=== PATIENT | female | born 1955 | race Caucasian/White ===

== ENCOUNTER 2017-05-22 21:27 | Emergency (ER) | payer OTHER ==
[2017-05-22 22:28] LABS: #Eosinphils 0.3 thou/uL (0.0-0.7); #Lymphocytes 3.9 thou/uL (1.20-3.40); #Neutrophils 6.8 thou/uL (1.40-6.50); %Basophils 0.1 % (0.0-1.0); %Eosinophils 2.7 % (0.0-10.0); %Lymphocytes 32.3 % (21.0-51.0); %Monocytes 8.3 % (0.0-10.0); %Neutrophils 56.6 % (42.0-75.0); Hemoglobin 11.6 g/dL (12.0-16.0); Mean Corpuscular HGB CONC 34.2 g/dL (32.0-36.0); Mean Corpuscular Hemoglobin 31.9 pg (27.0-31.0); Mean Corpuscular Volume 93.2 fl (81.0-99.0); Mean Platelet Volume 6.9 fL (7.4-10.4); Platelet Count 349 thou/uL (130-400); RBC Distribution Width 11.8 % (11.5-14.5); Red Blood Cell (RBC) Count 3.63 mill/uL (4.20-5.40)
[2017-05-22 22:50] LABS: ALT (SGPT) 13 U/L (8-55); AST (SGOT) 17 U/L (5-34); Alkaline Phosphatase 123 U/L (40-150); Anion Gap 11 mmol/L (10-20); BUN (Urea Nitrogen) 21 mg/dL (9.8-20.1); Bilirubin, Total 0.4 mg/dL (0.2-1.2); Calc. Creatinine Clearance 0 mL/min (70-130); Calcium 8.9 mg/dL (7.8-10.44); Carbon Dioxide 25 mmol/L (22-29); Chloride 105 mmol/L (98-107); Estimated GFR-MDRD 42; Globulin 2.3 g/dL (2.4-3.5); Glucose 104 mg/dL (70-105); Potassium 3.2 mmol/L (3.5-5.1); Protein, Total 6.3 g/dL (6.0-8.3); Sodium 138 mmol/L (136-145)
--- NOTE | 2017-05-22 23:58 | RAD ---
THREE VIEWS OF THE RIGHT FOOT: Indication: History of right foot infection following surgery. Comparison: 12-02-12 FINDINGS: Since the comparison examination there has been an interval bunionectomy and rotational osteotomy of the great toe metatarsal. There is also arthrodesis of the great toe medial cuneiform articulation. T here is a screws fixating the base of the great toe metatarsal with a metal cuneiform. There are also changes of prior external fixator placement involving the second metatarsal shaft. There is also ost eotomy change involving the second metatarsal head and neck region. There is post-surgical change res ection arthroplasty of the second digit PIP joint. No acute fracture is evident. Lisfranc alignment i s preserved. 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 There is soft tissue swelling of the forefoot. IMPRESSION: 1. Soft tissue swelling of the right foot. 2. Extensive post-operative changes of the right foot. 3. No definite destructive osteolysis to suggest presence of osteomyelitis. POS: [facility]
[2017-05-23] MEDS ORDERED: Clindamycin/D5W 600 mg/50 ml Premix Bag ONE (00:33)
[2017-05-23] MEDS ORDERED: Morphine 4 MG/ML VIAL ONE (02:17)
--- NOTE | 2017-05-23 08:41 | CT ---
PRELIMINARY REPORT/[facility]/EMERGENTY AFTER-HOURS PROCEDURE EXAM: CT Right Lower Extremity With Intravenous Contrast EXAM DATE/TIME: Exam ordered 05/23/2017 1:33 AM CLINICAL HISTORY: 61 years old, female; Pain; Ankle and foot; Right; Prior surgery; Surgery date: <1 month; Patient HX: 61 yo f presents to ed C/O r foot pain. Pt states she had surgery on r foot on 04/22/[address] Arias . States that a couple days ago she started having pain to r foot, worse today. Also reports swelling t o r foot that started last night. Pt states she has also had fever, temp 100. Reports nausea. Denies vomiting or diarrhea. 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 TECHNIQUE: Axial computed tomography images of the right lower extremity with intravenous contrast. Coronal and sagittal reformatted images were created and reviewed. CONTRAST: 60 mL of ISOVUE 370 administered intravenously. COMPARISON: No relevant prior studies available. FINDINGS: Bones/joints: Patient is post bunionectomy at the first metatarsal head with surgical pinning of the second metatarsal head, base of the first metatarsal and cuneiform bones. No acute fracture. No dislo cation. Soft tissues: There is marked soft tissue swelling adjacent to the RIGHT first metatarsal head with c ortical rarefaction which may represent postsurgical change versus acute osteomyelitis. IMPRESSION: 1. RIGHT foot postsurgical changes as above. 2. There is marked soft tissue swelling adjacent to the RIGHT first metatarsal head with cortical rar efaction which may represent postsurgical change versus acute osteomyelitis. MRI foot without and wit h contrast or nuclear medicine bone scan may be helpful for further evaluation. Followup or further e valuation for this finding at local [facility] radiologist's discretion. Thank you for allowing us to participate in the care of your patient. Dictated and Authenticated by: Phoenix Burton MD 05/23/2017 2:39 AM Central Time ([place] & [place]) FINAL REPORT CT RIGHT FOOT WITH CONTRAST: Date: 05/23/17 HISTORY: Pain. Recent surgery. FINDINGS/IMPRESSION: The findings and impression are concordant with the preliminary report. The focal area of rarefaction of the great toe metatarsal head is most likely postsurgical in nature. Recommend correlating with p ousmane's intraoperative and recent postoperative radiographs.
[2017-05-23] MEDS ORDERED: ISOVUE-370 76%-LOCM 1 ML ONE (09:25)
== END 2017-05-23 05:34 | disposition home or self-care (01) ==
LOC: ERS 21:27
DX: G89.18 Other acute postprocedural pain (principal); L03.115 Cellulitis of right lower limb; F32.9 Major depressive disorder, single episode, unspecified; F17.210 Nicotine dependence, cigarettes, uncomplicated; Z79.899 Other long term (current) drug therapy
CPT/HCPCS: 36415; 80053; 83605; 85025; 87040; 96365; 96367; 96375; 99406; J2270; J3370; J3490

== ENCOUNTER 2017-09-29 22:05 | Emergency (ER) | payer OTHER ==
[2017-09-29] MEDS ORDERED: HYDROcodone/Acetaminophen 10/325 mg Tablet ONE (22:28)
--- NOTE | 2017-09-29 22:48 | RAD ---
FOUR VIEWS LEFT KNEE: 09/29/17 INDICATION: Left knee injury. COMPARISON: None. FINDINGS: No acute fracture or subluxation is evident. There is moderate osteoarthrosis of the left knee. No de finite intracapsular distention is evident. IMPRESSION: No acute osseous abnormality. Moderate osteoarthrosis of the left knee. POS: [facility]
== END 2017-09-29 23:24 | disposition home or self-care (01) ==
LOC: ERS 22:05
DX: S83.92XA Sprain of unspecified site of left knee, initial encounter (principal); E03.9 Hypothyroidism, unspecified; M06.9 Rheumatoid arthritis, unspecified; F41.9 Anxiety disorder, unspecified; F32.9 Major depressive disorder, single episode, unspecified; F90.9 Attention-deficit hyperactivity disorder, unspecified type; Z79.899 Other long term (current) drug therapy; Z71.6 Tobacco abuse counseling; X50.1XXA Overexertion from prolonged static or awkward postures, initial encounter
CPT/HCPCS: 99406

== ENCOUNTER 2019-02-25 19:32 | Emergency (ER) | payer OTHER ==
[2019-02-25 20:34] LABS: #Basophils 0.1 thou/uL (0.0-0.2); #Eosinphils 0.1 thou/uL (0.0-0.7); #Lymphocytes 3.5 thou/uL (1.20-3.40); #Monocytes 0.9 thou/uL (0.11-0.59); #Neutrophils 6.3 thou/uL (1.40-6.50); %Basophils 0.6 % (0.0-1.0); %Eosinophils 1.4 % (0.0-10.0); %Lymphocytes 32.1 % (21.0-51.0); %Monocytes 8.2 % (0.0-10.0); %Neutrophils 57.7 % (42.0-75.0); Hemoglobin 13.6 g/dL (12.0-16.0); Mean Corpuscular HGB CONC 32.8 g/dL (32.0-36.0); Mean Corpuscular Hemoglobin 30.9 pg (27.0-31.0); Mean Corpuscular Volume 94.2 fL (78.0-98.0); Mean Platelet Volume 7.7 fL (7.4-10.4); Platelet Count 382 thou/uL (130-400); RBC Distribution Width 11.9 % (11.5-14.5); Red Blood Cell (RBC) Count 4.41 mill/uL (4.20-5.40)
[2019-02-25 20:55] LABS: ALT (SGPT) 12 U/L (8-55); AST (SGOT) 17 U/L (5-34); Albumin 4.1 g/dL (3.4-4.8); Alkaline Phosphatase 140 U/L (40-110); Anion Gap 15 mmol/L (10-20); BUN (Urea Nitrogen) 15 mg/dL (9.8-20.1); Bilirubin, Total 0.3 mg/dL (0.2-1.2); Calc. Creatinine Clearance 0 mL/min (70-130); Calcium 9.2 mg/dL (7.8-10.44); Carbon Dioxide 26 mmol/L (23-31); Chloride 102 mmol/L (98-107); Estimated GFR-MDRD 46; Globulin 2.7 g/dL (2.4-3.5); Glucose 102 mg/dL (80-115); Potassium 4.6 mmol/L (3.5-5.1); Protein, Total 6.8 g/dL (6.0-8.3); Sodium 138 mmol/L (136-145)
--- NOTE | 2019-02-25 21:02 | RAD ---
RIGHT FOOT 3 VIEWS: Date: 02/25/2019 HISTORY: Surgery 01/08/19. Postop complication. COMPARISON: 05/22/17 foot examination, which is the only exam available for comparison. FINDINGS: A plate and screws extend over the first metatarsophalangeal joint. Also, screw placement at the base of the metatarsals and pin placement through the second toe and second metatarsal. There is chronic- appearing fracture of the base of the proximal phalanx of the second toe. Calcaneal spur is noted. I do not see any definite evidence for osteomyelitis. IMPRESSION: Postoperative changes of the foot. No definite acute process. POS: [facility]
[2019-02-25] MEDS ORDERED: Morphine 4 MG/ML VIAL ONE (22:37)
[2019-02-25] MEDS ORDERED: Ketorolac Tromethamine 30 MG/ML VIAL ONE (22:37)
[2019-02-25] MEDS ORDERED: Bacitracin 1 PK ONE (22:44)
== END 2019-02-25 23:10 | disposition home or self-care (01) ==
LOC: ERS 19:32
DX: T84.629A Infection and inflammatory reaction due to internal fixation device of unspecified bone of leg, initial encounter (principal); F32.9 Major depressive disorder, single episode, unspecified; F41.9 Anxiety disorder, unspecified; F90.9 Attention-deficit hyperactivity disorder, unspecified type; F17.210 Nicotine dependence, cigarettes, uncomplicated; E03.9 Hypothyroidism, unspecified; Z79.899 Other long term (current) drug therapy
CPT/HCPCS: 36415; 80053; 85025; 85652; 86140; 96372; J1885; J2270

== ENCOUNTER 2019-05-09 15:28 | Emergency (ER) | payer BC, OTHER | END 2019-05-09 17:15 | disposition home or self-care (01) | LOC: ERS 15:28 | DX: L03.114 Cellulitis of left upper limb (principal); E03.9 Hypothyroidism, unspecified; M06.9 Rheumatoid arthritis, unspecified; F41.9 Anxiety disorder, unspecified; M19.90 Unspecified osteoarthritis, unspecified site; F90.9 Attention-deficit hyperactivity disorder, unspecified type; Z87.891 Personal history of nicotine dependence; Z71.6 Tobacco abuse counseling | CPT/HCPCS: 99406 ==

== ENCOUNTER 2021-10-23 09:42 | Outpatient (CLI) | payer OTHER, MEDICAID | END 2021-10-23 09:43 | disposition home or self-care (01) | LOC: BICMAMMO 09:42 | PROVIDERS: ATTEND Family Medicine | DX: N64.89 Other specified disorders of breast (principal) | CPT/HCPCS: 76642; 77065; G0279 ==

== ENCOUNTER 2023-03-15 14:03 | Outpatient (CLI) | payer OTHER, MEDICAID | END 2023-03-15 14:04 | disposition home or self-care (01) | LOC: BICMAMMO 14:03 | PROVIDERS: ATTEND Family Medicine | DX: Z12.31 Encounter for screening mammogram for malignant neoplasm of breast (principal); Z12.2 Encounter for screening for malignant neoplasm of respiratory organs; R91.8 Other nonspecific abnormal finding of lung field; J18.1 Lobar pneumonia, unspecified organism; Z87.891 Personal history of nicotine dependence | CPT/HCPCS: 71271; 77063; 77067 ==

== ENCOUNTER 2024-11-06 21:28 | Emergency (ER) | payer OTHER, MEDICAID | END 2024-11-06 21:43 | LOC: ERS 21:28 | DX: Z53.21 Procedure and treatment not carried out due to patient leaving prior to being seen by health care provider (principal) ==

== ENCOUNTER 2024-12-26 15:16 | Inpatient (IN) | payer OTHER, MEDICAID ==
[2024-12-26] MEDS ORDERED: Ketorolac Tromethamine 30 MG (1 mL) VIAL ONE (16:52)
[2024-12-26 17:02] LABS: #Basophils 0.03 10x3/uL (0.0-0.2); #Eosinophils 0.55 10x3/uL (0.0-0.7); #Monocytes 1.14 10x3/uL (0.11-0.59); #Neutrophils 7.45 10x3/uL (1.40-6.50); %Basophils 0.3 % (0.0-1.0); %Eosinophils 4.6 % (0.0-10.0); %Lymphocytes 22.3 % (21.0-51.0); %Monocytes 9.6 % (0.0-10.0); %Neutrophils 62.8 % (42.0-75.0); Hematocrit 31.3 % (36.0-47.0); Hemoglobin 9.9 g/dL (12.0-16.0); Mean Corpuscular Hemoglobin 30.5 pg (27.0-31.0); Mean Corpuscular Volume 96.3 fL (78.0-98.0); Platelet Count 332 10x3/uL (130-400); Red Blood Cell (RBC) Count 3.25 mill/uL (4.20-5.40); White Blood Cell (WBC) Count 11.86 10x3/uL (4.8-10.8)
[2024-12-26 17:29] LABS: Anion Gap 16 mmol/L (10-20); BUN (Urea Nitrogen) 33 mg/dL (9.8-20.1); Calc. Creatinine Clearance 0 mL/min (70-130); Carbon Dioxide 22 mmol/L (23-31); Chloride 104 mmol/L (98-107); Potassium 4.5 mmol/L (3.5-5.1); Sodium 137 mmol/L (136-145)
[2024-12-26 17:30] LABS: ALT (SGPT) 9 U/L (Less than 34); AST (SGOT) 34 U/L (11-34); Albumin 3.5 g/dL (3.1-4.5); Alkaline Phosphatase 110 U/L (40-110); Bilirubin, Total 0.6 mg/dL (0.3-1.2); Calcium 8.8 mg/dL (7.8-10.44); Globulin 3.0 g/dL (2.4-3.5); Glucose 75 mg/dL (80-115); Magnesium 1.8 mg/dL (1.6-2.6)
[2024-12-26] MEDS ORDERED: Dexamethasone 10 MG/ML VIAL ONE (17:51)
[2024-12-26] MEDS ORDERED: Magnesium 2 GM/50 ML BAG (IN WATER) ONE (17:51)
[2024-12-26] MEDS ORDERED: Albuterol 2.5 MG (3 mL) NEB ONE (17:51)
[2024-12-26] MEDS ORDERED: Dextrose 50% Abboject 50 ML SYRINGE ONE ×2 (18:05→21:18)
[2024-12-26 18:06] LABS: Actual Bicarbonate (HCO3a) 20.8 mEq/L (22-28); Analyzer IN Cardio ER; Base Excess (BEa) -4.9 mEq/L (-2.0 to +3.0); CO2 Tension 41.2 mmHg (35.0-45.0); Calcium, Ionized (arterial) 1.12 mmol/L (1.12-1.30); Hematocrit-ABG 31 % (36.0-47.0); Hemoglobin (Hb) 10.5 g/dL (12.0-16.0); O2 Tension (PaO2), arterial 150.4 mmHg (> 80.0); Potassium - ABG Lab 4.50 mmol/L (3.70-5.30); pH, Arterial 7.321 (7.35-7.45)
[2024-12-26 19:11] LABS: Acetaminophen Less than 10 mcg/mL (Less than 10); Salicylate Less than 8.0 mg/dL (Less than 8.0)
[2024-12-26 22:21] LABS: CAUTI Indications for Culture Dysuria,urgency,freq; Glucose, Urine (Dipstick) Normal (Negative); Leukocyte Negative Leu/uL (Negative); Protein, Urine (Dipstick) Negative (Neg-Trace); RBC/HPF None Seen HPF (0-3); Specific Gravity, Urine 1.018 (1.002-1.036); WBC/HPF 0-3 HPF (0-3)
[2024-12-26 22:22] LABS: Bacteria/HPF 1+ HPF (None Seen)
[2024-12-26 22:24] LABS: Urine Culture Reflex No No
[2024-12-26 22:25] LABS: Cocaine Metabolite Screen Negative (Negative); THC/Cannabinoid Screen Negative (Negative); Tricyclic Screen Negative (Negative)
[2024-12-27] MEDS ORDERED: Calcium Carbonate 500 MG ChewTAB PO PRN (00:35)
[2024-12-27] MEDS ORDERED: Senokot S 8.6-50 MG TAB PO PRN (00:35)
[2024-12-27] MEDS ORDERED: Ondansetron PF 4 MG/2 ML Vial IVP PRN (00:35)
[2024-12-27 00:50] LABS: Hematocrit 30.5 % (36.0-47.0); Hemoglobin 9.3 g/dL (12.0-16.0)
[2024-12-27] MEDS: Albumin 25% 25 GM (100 mL) BOT IVPB SCH ×2 (02:39→05:27)
[2024-12-27] MEDS: cefTRIAXone\\ROCEPHIN 1 GM in Sodium Chloride 0.9% 100 ML IVPB SCH ×2 (02:59→22:17)
[2024-12-27] MEDS: Azithromycin 500 MG in Sodium Chloride 0.9% 250 ML 250 ML IVPB SCH ×2 (03:41→22:16)
[2024-12-27] MEDS: cefTRIAXone (ROCEPHIN) 1 GM VIAL ONE ×2 (03:42→22:17)
[2024-12-27 05:18] LABS: Actual Bicarbonate (HCO3v) 17.2 mEq/L (22-28); Base Excess -8.0 mEq/L (-2.0 to +3.0); Calcium, Ionized (venous) 1.06 mmol/L (1.16-1.32); Chloride (VBG) 107 mmol/L (98-106); Hematocrit-VBG 29 % (36.0-47.0); Hemoglobin (Hb) 9.8 g/dL (11.7-16.1); Potassium (VBG) 4.88 mmol/L (3.70-5.30); Sodium 136 mmol/L (133-146)
[2024-12-27 05:27] LABS: #Basophils Less than 0.03 10x3/uL (0.0-0.2); #Eosinophils Less than 0.03 10x3/uL (0.0-0.7); #Monocytes 0.08 10x3/uL (0.11-0.59); #Neutrophils 6.62 10x3/uL (1.40-6.50); %Basophils 0.1 % (0.0-1.0); %Eosinophils 0.0 % (0.0-10.0); %Lymphocytes 8.1 % (21.0-51.0); %Monocytes 1.1 % (0.0-10.0); %Neutrophils 89.6 % (42.0-75.0); Hematocrit 27.2 % (36.0-47.0); Hemoglobin 8.3 g/dL (12.0-16.0); Mean Corpuscular Hemoglobin 30.5 pg (27.0-31.0); Mean Corpuscular Volume 100.0 fL (78.0-98.0); Platelet Count 269 10x3/uL (130-400); Red Blood Cell (RBC) Count 2.72 mill/uL (4.20-5.40); White Blood Cell (WBC) Count 7.39 10x3/uL (4.8-10.8)
[2024-12-27 05:46] LABS: Iron 54 ug/dL (50-170); Iron Binding Capacity, Total 199 mcg/dL (265-497)
[2024-12-27 05:51] LABS: ALT (SGPT) 7 U/L (Less than 34); AST (SGOT) 26 U/L (11-34); Albumin 3.4 g/dL (3.1-4.5); Alkaline Phosphatase 88 U/L (40-110); Anion Gap 14 mmol/L (10-20); BUN (Urea Nitrogen) 33 mg/dL (9.8-20.1); Bilirubin, Total 0.4 mg/dL (0.3-1.2); Calc. Creatinine Clearance 27 mL/min (70-130); Calcium 8.1 mg/dL (7.8-10.44); Carbon Dioxide 18 mmol/L (23-31); Chloride 109 mmol/L (98-107); Globulin 2.4 g/dL (2.4-3.5); Glucose 192 mg/dL (80-115); Iron 56 ug/dL (50-170); Iron Binding Capacity, Total 199 mcg/dL (265-497); Magnesium 2.3 mg/dL (1.6-2.6); Potassium 5.0 mmol/L (3.5-5.1); Sodium 136 mmol/L (136-145)
[2024-12-27 08:20] LABS: Influenza A by NAA Not Detected (NotDetected); Influenza B by NAA Not Detected (NotDetected); RSV by NAA Not Detected (NotDetected); SARS-CoV-2 NAA Rapid Test Not Detected (NotDetected)
[2024-12-27] MEDS: Citalopram 20 MG TAB PO SCH (08:21)
[2024-12-27] MEDS: Gabapentin 300 MG CAP PO SCH (08:25)
[2024-12-27] MEDS: Acetaminophen 325 MG TAB PO PRN (10:56)
[2024-12-28 04:18] LABS: #Basophils Less than 0.03 10x3/uL (0.0-0.2); #Eosinophils Less than 0.03 10x3/uL (0.0-0.7); #Monocytes 0.67 10x3/uL (0.11-0.59); #Neutrophils 17.88 10x3/uL (1.40-6.50); %Basophils 0.1 % (0.0-1.0); %Eosinophils 0.0 % (0.0-10.0); %Lymphocytes 3.7 % (21.0-51.0); %Monocytes 3.4 % (0.0-10.0); %Neutrophils 91.4 % (42.0-75.0); Hematocrit 27.9 % (36.0-47.0); Hemoglobin 8.3 g/dL (12.0-16.0); Mean Corpuscular Hemoglobin 30.1 pg (27.0-31.0); Mean Corpuscular Volume 101.1 fL (78.0-98.0); Platelet Count 317 10x3/uL (130-400); Red Blood Cell (RBC) Count 2.76 mill/uL (4.20-5.40); White Blood Cell (WBC) Count 19.56 10x3/uL (4.8-10.8)
[2024-12-28 04:29] LABS: Anion Gap 17 mmol/L (10-20); BUN (Urea Nitrogen) 34 mg/dL (9.8-20.1); Calc. Creatinine Clearance 34 mL/min (70-130); Calcium 8.2 mg/dL (7.8-10.44); Carbon Dioxide 14 mmol/L (23-31); Chloride 113 mmol/L (98-107); Glucose 123 mg/dL (80-115); Potassium 4.7 mmol/L (3.5-5.1); Sodium 139 mmol/L (136-145)
[2024-12-28 12:29] LABS: Actual Bicarbonate (HCO3v) 19.7 mEq/L (22-28); Base Excess -6.5 mEq/L (-2.0 to +3.0); Calcium, Ionized (venous) 1.13 mmol/L (1.16-1.32); Chloride (VBG) 113 mmol/L (98-106); Hematocrit-VBG 29 % (36.0-47.0); Hemoglobin (Hb) 9.9 g/dL (11.7-16.1); Potassium (VBG) 4.89 mmol/L (3.70-5.30); Sodium 141 mmol/L (133-146)
[2024-12-28] MEDS: Furosemide 40 MG (4 mL) VIAL SLOW IVP SCH (12:29)
[2024-12-28 13:57] LABS: Actual Bicarbonate (HCO3a) 19.4 mEq/L (22-28); Base Excess (BEa) -5.3 mEq/L (-2.0 to +3.0); CO2 Tension 34.6 mmHg (35.0-45.0); Calcium, Ionized (arterial) 1.16 mmol/L (1.12-1.30); Hematocrit-ABG 29 % (36.0-47.0); Hemoglobin (Hb) 10.0 g/dL (12.0-16.0); O2 Tension (PaO2), arterial 61.1 mmHg (> 80.0); Potassium - ABG Lab 4.89 mmol/L (3.70-5.30); pH, Arterial 7.367 (7.35-7.45)
[2024-12-28 14:01] LABS: Puncture Site Left Brachial artery
[2024-12-28] MEDS: Azithromycin 500 MG VIAL ONE (20:49)
[2024-12-28] MEDS: Sodium Bicarbonate Tab 325 MG TAB PO SCH (21:09)
[2024-12-29 04:27] LABS: #Basophils Less than 0.03 10x3/uL (0.0-0.2); #Eosinophils Less than 0.03 10x3/uL (0.0-0.7); #Monocytes 0.62 10x3/uL (0.11-0.59); #Neutrophils 14.70 10x3/uL (1.40-6.50); %Basophils 0.1 % (0.0-1.0); %Eosinophils 0.0 % (0.0-10.0); %Lymphocytes 4.3 % (21.0-51.0); %Monocytes 3.8 % (0.0-10.0); %Neutrophils 90.6 % (42.0-75.0); Hematocrit 29.4 % (36.0-47.0); Hemoglobin 9.2 g/dL (12.0-16.0); Mean Corpuscular Hemoglobin 30.6 pg (27.0-31.0); Mean Corpuscular Volume 97.7 fL (78.0-98.0); Platelet Count 298 10x3/uL (130-400); Red Blood Cell (RBC) Count 3.01 mill/uL (4.20-5.40); White Blood Cell (WBC) Count 16.22 10x3/uL (4.8-10.8)
[2024-12-29 04:39] LABS: Anion Gap 13 mmol/L (10-20); BUN (Urea Nitrogen) 34 mg/dL (9.8-20.1); Calc. Creatinine Clearance 42 mL/min (70-130); Calcium 8.9 mg/dL (7.8-10.44); Carbon Dioxide 24 mmol/L (23-31); Chloride 110 mmol/L (98-107); Glucose 137 mg/dL (80-115); Potassium 4.9 mmol/L (3.5-5.1); Sodium 142 mmol/L (136-145)
[2024-12-29] MEDS ORDERED: QUEtiapine 25 MG TAB PO SCH (21:00)
[2024-12-29] MEDS: Sodium Bicarbonate Tab 325 MG TAB PO SCH (21:23)
[2024-12-29] MEDS: diphenhydrAMINE 50 MG/ML VIAL IVP SCH (23:47)
[2024-12-30] MEDS ORDERED: QUEtiapine 25 MG TAB PO SCH (02:15)
[2024-12-30 03:27] LABS: Actual Bicarbonate (HCO3v) 23.0 mEq/L (22-28); Base Excess -0.6 mEq/L (-2.0 to +3.0); Calcium, Ionized (venous) 1.09 mmol/L (1.16-1.32); Chloride (VBG) 107 mmol/L (98-106); Hematocrit-VBG 31 % (36.0-47.0); Hemoglobin (Hb) 10.5 g/dL (11.7-16.1); Potassium (VBG) 4.28 mmol/L (3.70-5.30); Sodium 141 mmol/L (133-146)
[2024-12-30 03:31] LABS: #Basophils Less than 0.03 10x3/uL (0.0-0.2); #Eosinophils Less than 0.03 10x3/uL (0.0-0.7); #Monocytes 1.48 10x3/uL (0.11-0.59); #Neutrophils 15.77 10x3/uL (1.40-6.50); %Basophils 0.1 % (0.0-1.0); %Eosinophils 0.0 % (0.0-10.0); %Lymphocytes 10.6 % (21.0-51.0); %Monocytes 7.6 % (0.0-10.0); %Neutrophils 80.9 % (42.0-75.0); Hematocrit 29.1 % (36.0-47.0); Hemoglobin 9.1 g/dL (12.0-16.0); Mean Corpuscular Hemoglobin 30.3 pg (27.0-31.0); Mean Corpuscular Volume 97.0 fL (78.0-98.0); Platelet Count 276 10x3/uL (130-400); Red Blood Cell (RBC) Count 3.00 mill/uL (4.20-5.40); White Blood Cell (WBC) Count 19.49 10x3/uL (4.8-10.8)
[2024-12-30 03:44] LABS: Anion Gap 16 mmol/L (10-20); BUN (Urea Nitrogen) 34 mg/dL (9.8-20.1); Calc. Creatinine Clearance 47 mL/min (70-130); Calcium 9.2 mg/dL (7.8-10.44); Carbon Dioxide 22 mmol/L (23-31); Chloride 110 mmol/L (98-107); Glucose 82 mg/dL (80-115); Potassium 4.4 mmol/L (3.5-5.1); Sodium 144 mmol/L (136-145)
[2024-12-30] MEDS: FLU (Fluad Triv) 25-26 (65UP)PF 45 MCG/0.5 ML Syringe IM ONE (09:25)
[2024-12-30] MEDS ORDERED: DISCONTINUE PREVIOUS NARCOTIC PAIN MEDICATIONS AND BENZODIAZEPINES FS SCH (11:30)
[2024-12-30] MEDS ORDERED: Fentanyl BOLUS 100 ML IVPB PRN (11:30)
[2024-12-30] MEDS ORDERED: Propofol BOLUS 1,000 MG/100 ML VIAL IV PRN (11:30)
[2024-12-30] MEDS: Furosemide 40 MG (4 mL) VIAL ONE (11:37)
[2024-12-30] MEDS: Furosemide 40 MG (4 mL) VIAL SLOW IVP SCH (11:37)
[2024-12-30] MEDS ORDERED: Etomidate 40 MG (20 mL) VIAL ONE (11:50)
[2024-12-30] MEDS ORDERED: Rocuronium Bromide 10 MG/ML (10ML VIAL) ONE (11:50)
[2024-12-30] MEDS ORDERED: Ventilator Sedation Protocol 1 EACH FS SCH (12:30)
[2024-12-30 13:17] LABS: Actual Bicarbonate (HCO3a) 20.5 mEq/L (22-28); Base Excess (BEa) -4.7 mEq/L (-2.0 to +3.0); CO2 Tension 38.4 mmHg (35.0-45.0); Calcium, Ionized (arterial) 1.16 mmol/L (1.12-1.30); Hematocrit-ABG 30 % (36.0-47.0); Hemoglobin (Hb) 10.3 g/dL (12.0-16.0); O2 Tension (PaO2), arterial 155.9 mmHg (> 80.0); Potassium - ABG Lab 4.08 mmol/L (3.70-5.30); pH, Arterial 7.346 (7.35-7.45)
[2024-12-30 13:18] LABS: Puncture Site Right Brachial art
[2024-12-30] MEDS: VANCOMYCIN 2 GRAM/400 ML BAG 2 GM in Premix 1 BAG IVPB SCH (13:44)
[2024-12-30 15:06] LABS: ALT (SGPT) 16 U/L (Less than 34); AST (SGOT) 41 U/L (11-34); Albumin 3.4 g/dL (3.1-4.5); Alkaline Phosphatase 65 U/L (40-110); Anion Gap 14 mmol/L (10-20); BUN (Urea Nitrogen) 31 mg/dL (9.8-20.1); Bilirubin, Total 1.2 mg/dL (0.3-1.2); Calc. Creatinine Clearance 42 mL/min (70-130); Calcium 8.5 mg/dL (7.8-10.44); Carbon Dioxide 23 mmol/L (23-31); Chloride 110 mmol/L (98-107); Globulin 2.5 g/dL (2.4-3.5); Glucose 106 mg/dL (80-115); Potassium 4.2 mmol/L (3.5-5.1); Sodium 143 mmol/L (136-145)
[2024-12-30] MEDS: Norepinephrine 8 MG/0.9% NS 250 ML IVPB SCH (16:20)
[2024-12-30] MEDS: Norepinephrine 8 MG/0.9% NS 250 ML ONE (16:37)
[2024-12-30 20:22] LABS: Actual Bicarbonate (HCO3a) 20.4 mEq/L (22-28); Base Excess (BEa) -4.7 mEq/L (-2.0 to +3.0); CO2 Tension 37.5 mmHg (35.0-45.0); Calcium, Ionized (arterial) 1.12 mmol/L (1.12-1.30); Hematocrit-ABG 31 % (36.0-47.0); Hemoglobin (Hb) 10.7 g/dL (12.0-16.0); O2 Tension (PaO2), arterial 62.8 mmHg (> 80.0); Potassium - ABG Lab 4.05 mmol/L (3.70-5.30); pH, Arterial 7.353 (7.35-7.45)
[2024-12-30 20:23] LABS: ALV-art Gradient 389.425 mmHg (0-20); Puncture Site Right Radial artery
[2024-12-31 04:03] LABS: Hematocrit 31.8 % (36.0-47.0); Hemoglobin 9.6 g/dL (12.0-16.0); Mean Corpuscular Hemoglobin 30.4 pg (27.0-31.0); Mean Corpuscular Volume 100.6 fL (78.0-98.0); Platelet Count 314 10x3/uL (130-400); Red Blood Cell (RBC) Count 3.16 mill/uL (4.20-5.40); White Blood Cell (WBC) Count 29.58 10x3/uL (4.8-10.8)
[2024-12-31 04:18] LABS: Vancomycin, Random 24.6 ug/mL (See Comment)
[2024-12-31 04:21] LABS: ALT (SGPT) 11 U/L (Less than 34); AST (SGOT) 21 U/L (11-34); Albumin 3.5 g/dL (3.1-4.5); Alkaline Phosphatase 67 U/L (40-110); Anion Gap 18 mmol/L (10-20); BUN (Urea Nitrogen) 44 mg/dL (9.8-20.1); Bilirubin, Total 0.9 mg/dL (0.3-1.2); Calc. Creatinine Clearance 37 mL/min (70-130); Calcium 8.6 mg/dL (7.8-10.44); Carbon Dioxide 21 mmol/L (23-31); Chloride 108 mmol/L (98-107); Globulin 2.9 g/dL (2.4-3.5); Glucose 130 mg/dL (80-115); Potassium 4.1 mmol/L (3.5-5.1); Sodium 143 mmol/L (136-145)
[2024-12-31 04:43] LABS: Anisocytosis SLIGHT = 6-15 cells HPF (0-5); Macrocytosis SLIGHT = 6-15 cells HPF (0-5); Platelet Adequacy Comment Platelets Normal; Polychromasia SLIGHT = 2-3 cells HPF (0-2)
[2024-12-31] MEDS: Midazolam In 0.9 % NaCl/PF 100 ML IVPB SCH (05:18)
[2024-12-31] MEDS ORDERED: Furosemide 40 MG (4 mL) VIAL SLOW IVP SCH (09:00)
[2024-12-31] MEDS ORDERED: Vancomycin Dose by Levels Sliding Scale (Wt 71-99) FS SCH (10:15)
[2024-12-31] MEDS: Enoxaparin 30 MG (0.3 mL) SYRINGE SC SCH (11:49)
[2024-12-31] MEDS: Furosemide 20 MG (2 mL) VIAL SLOW IVP SCH ×2 (11:49→14:40)
[2024-12-31 11:56] LABS: Actual Bicarbonate (HCO3a) 23.1 mEq/L (22-28); Base Excess (BEa) -2.3 mEq/L (-2.0 to +3.0); CO2 Tension 42.6 mmHg (35.0-45.0); Calcium, Ionized (arterial) 1.13 mmol/L (1.12-1.30); Hematocrit-ABG 32 % (36.0-47.0); Hemoglobin (Hb) 10.8 g/dL (12.0-16.0); Potassium - ABG Lab 3.61 mmol/L (3.70-5.30); pH, Arterial 7.353 (7.35-7.45)
[2024-12-31 11:58] LABS: O2 Tension (PaO2), arterial 57.6 mmHg (> 80.0); Puncture Site Left Brachial artery
[2024-12-31] MEDS ORDERED: Vancomycin HCl 750 MG in Sodium Chloride 0.9% 250 ML 250 ML IVPB SCH (12:00)
[2024-12-31 15:42] LABS: Actual Bicarbonate (HCO3a) 24.5 mEq/L (22-28); Base Excess (BEa) -1.4 mEq/L (-2.0 to +3.0); CO2 Tension 46.3 mmHg (35.0-45.0); Calcium, Ionized (arterial) 1.13 mmol/L (1.12-1.30); Hematocrit-ABG 32 % (36.0-47.0); Hemoglobin (Hb) 10.9 g/dL (12.0-16.0); O2 Tension (PaO2), arterial 223.0 mmHg (> 80.0); Potassium - ABG Lab 3.47 mmol/L (3.70-5.30); pH, Arterial 7.341 (7.35-7.45)
[2024-12-31 15:45] LABS: Vitamin D, 25 Hydroxy 5.0 ng/ml (> 30.0)
[2024-12-31 15:45] LABS: Puncture Site Left Brachial artery
[2024-12-31 16:29] LABS: Vitamin B12 395.0 pg/mL (211-911)
[2024-12-31] MEDS: Senokot S 8.6-50 MG TAB PER TUBE SCH (20:20)
[2025-01-01 03:54] LABS: #Basophils Less than 0.03 10x3/uL (0.0-0.2); #Eosinophils Less than 0.03 10x3/uL (0.0-0.7); #Monocytes 0.59 10x3/uL (0.11-0.59); #Neutrophils 18.65 10x3/uL (1.40-6.50); %Basophils 0.1 % (0.0-1.0); %Eosinophils 0.0 % (0.0-10.0); %Lymphocytes 2.4 % (21.0-51.0); %Monocytes 3.0 % (0.0-10.0); %Neutrophils 93.5 % (42.0-75.0); Hematocrit 31.2 % (36.0-47.0); Hemoglobin 9.9 g/dL (12.0-16.0); Mean Corpuscular Hemoglobin 30.2 pg (27.0-31.0); Mean Corpuscular Volume 95.1 fL (78.0-98.0); Platelet Count 295 10x3/uL (130-400); Red Blood Cell (RBC) Count 3.28 mill/uL (4.20-5.40); White Blood Cell (WBC) Count 19.93 10x3/uL (4.8-10.8)
[2025-01-01 04:17] LABS: ALT (SGPT) 14 U/L (Less than 34); AST (SGOT) 24 U/L (11-34); Albumin 3.0 g/dL (3.1-4.5); Alkaline Phosphatase 56 U/L (40-110); Anion Gap 18 mmol/L (10-20); BUN (Urea Nitrogen) 48 mg/dL (9.8-20.1); Bilirubin, Total 0.5 mg/dL (0.3-1.2); Calc. Creatinine Clearance 43 mL/min (70-130); Calcium 8.7 mg/dL (7.8-10.44); Carbon Dioxide 25 mmol/L (23-31); Chloride 108 mmol/L (98-107); Globulin 3.2 g/dL (2.4-3.5); Glucose 171 mg/dL (80-115); Potassium 2.9 mmol/L (3.5-5.1); Sodium 148 mmol/L (136-145)
[2025-01-01] MEDS: Potassium Chloride 20 MEQ in Premix 1 BAG IVPB SCH ×2 (04:53→12:16)
[2025-01-01] MEDS: Enoxaparin 30 MG (0.3 mL) SYRINGE SC SCH (08:39)
[2025-01-01] MEDS: Pantoprazole 40 MG VIAL IVP SCH (08:39)
[2025-01-01] MEDS: Thiamine 100 MG TAB PO SCH (08:43)
[2025-01-01 11:52] LABS: Vancomycin, Trough 11.1 ug/mL
[2025-01-01 11:56] LABS: ALT (SGPT) 15 U/L (Less than 34); AST (SGOT) 25 U/L (11-34); Albumin 2.9 g/dL (3.1-4.5); Alkaline Phosphatase 56 U/L (40-110); Anion Gap 15 mmol/L (10-20); BUN (Urea Nitrogen) 47 mg/dL (9.8-20.1); Bilirubin, Total 0.5 mg/dL (0.3-1.2); Calc. Creatinine Clearance 42 mL/min (70-130); Calcium 9.0 mg/dL (7.8-10.44); Carbon Dioxide 26 mmol/L (23-31); Chloride 111 mmol/L (98-107); Globulin 3.1 g/dL (2.4-3.5); Glucose 156 mg/dL (80-115); Potassium 3.7 mmol/L (3.5-5.1); Sodium 148 mmol/L (136-145)
[2025-01-01] MEDS: Vancomycin HCl 750 MG in Sodium Chloride 0.9% 250 ML 250 ML IVPB SCH (12:24)
[2025-01-01] MEDS ORDERED: Electrolyte Replacement Protocol 1 EACH FS ONE (14:47)
[2025-01-01] MEDS ORDERED: PHOS-NAK 1 PKT PACK PO PRN (15:00)
[2025-01-01] MEDS ORDERED: Magnesium 2 GM/50 ML(in water) 2 GM in Premix 1 BAG IVPB PRN (15:00)
[2025-01-01] MEDS ORDERED: Potassium Chloride 20 MEQ in Premix 1 BAG IVPB PRN (15:00)
[2025-01-02 02:33] LABS: #Basophils Less than 0.03 10x3/uL (0.0-0.2); #Eosinophils Less than 0.03 10x3/uL (0.0-0.7); #Monocytes 0.49 10x3/uL (0.11-0.59); #Neutrophils 13.60 10x3/uL (1.40-6.50); %Basophils 0.1 % (0.0-1.0); %Eosinophils 0.0 % (0.0-10.0); %Lymphocytes 3.2 % (21.0-51.0); %Monocytes 3.3 % (0.0-10.0); %Neutrophils 91.7 % (42.0-75.0); Hematocrit 31.8 % (36.0-47.0); Hemoglobin 9.8 g/dL (12.0-16.0); Mean Corpuscular Hemoglobin 30.3 pg (27.0-31.0); Mean Corpuscular Volume 98.5 fL (78.0-98.0); Platelet Count 326 10x3/uL (130-400); Red Blood Cell (RBC) Count 3.23 mill/uL (4.20-5.40); White Blood Cell (WBC) Count 14.83 10x3/uL (4.8-10.8)
[2025-01-02 03:51] LABS: Anion Gap 15 mmol/L (10-20); BUN (Urea Nitrogen) 52 mg/dL (9.8-20.1); Calc. Creatinine Clearance 51 mL/min (70-130); Calcium 8.8 mg/dL (7.8-10.44); Carbon Dioxide 23 mmol/L (23-31); Chloride 116 mmol/L (98-107); Glucose 159 mg/dL (80-115); Potassium 4.1 mmol/L (3.5-5.1); Sodium 150 mmol/L (136-145)
[2025-01-02 07:19] LABS: Actual Bicarbonate (HCO3a) 25.6 mEq/L (22-28); Base Excess (BEa) 0.4 mEq/L (-2.0 to +3.0); CO2 Tension 43.8 mmHg (35.0-45.0); Calcium, Ionized (arterial) 1.21 mmol/L (1.12-1.30); Hematocrit-ABG 33 % (36.0-47.0); Hemoglobin (Hb) 11.1 g/dL (12.0-16.0); O2 Tension (PaO2), arterial 79.2 mmHg (> 80.0); Potassium - ABG Lab 4.06 mmol/L (3.70-5.30); pH, Arterial 7.385 (7.35-7.45)
[2025-01-02 07:22] LABS: Puncture Site RR
[2025-01-02 10:48] LABS: Vancomycin, Trough 10.9 ug/mL
[2025-01-02] MEDS: Vancomycin 1 GM in Premix 1 BAG IVPB SCH (15:36)
[2025-01-02] MEDS: Azithromycin 250 MG TAB PER TUBE SCH (16:49)
[2025-01-02] MEDS: Mupirocin 1 GM TUBE NASAL DECOLONIZATION NASAL SCH (20:29)
[2025-01-03 04:38] LABS: #Basophils 0.04 10x3/uL (0.0-0.2); #Eosinophils Less than 0.03 10x3/uL (0.0-0.7); #Monocytes 1.49 10x3/uL (0.11-0.59); #Neutrophils 20.23 10x3/uL (1.40-6.50); %Basophils 0.2 % (0.0-1.0); %Eosinophils 0.0 % (0.0-10.0); %Lymphocytes 4.1 % (21.0-51.0); %Monocytes 6.3 % (0.0-10.0); %Neutrophils 85.5 % (42.0-75.0); Hematocrit 34.2 % (36.0-47.0); Hemoglobin 10.1 g/dL (12.0-16.0); Mean Corpuscular Hemoglobin 29.9 pg (27.0-31.0); Mean Corpuscular Volume 101.2 fL (78.0-98.0); Platelet Count 396 10x3/uL (130-400); Red Blood Cell (RBC) Count 3.38 mill/uL (4.20-5.40); White Blood Cell (WBC) Count 23.66 10x3/uL (4.8-10.8)
[2025-01-03 04:50] LABS: Vancomycin, Random 16.5 ug/mL (See Comment)
[2025-01-03 04:59] LABS: Anion Gap 13 mmol/L (10-20); BUN (Urea Nitrogen) 58 mg/dL (9.8-20.1); Calc. Creatinine Clearance 53 mL/min (70-130); Calcium 8.9 mg/dL (7.8-10.44); Carbon Dioxide 24 mmol/L (23-31); Chloride 118 mmol/L (98-107); Glucose 123 mg/dL (80-115); Potassium 4.3 mmol/L (3.5-5.1); Sodium 151 mmol/L (136-145)
[2025-01-03 07:46] LABS: Actual Bicarbonate (HCO3a) 27.0 mEq/L (22-28); Base Excess (BEa) 2.1 mEq/L (-2.0 to +3.0); CO2 Tension 43.1 mmHg (35.0-45.0); Calcium, Ionized (arterial) 1.25 mmol/L (1.12-1.30); Hematocrit-ABG 34 % (36.0-47.0); Hemoglobin (Hb) 11.6 g/dL (12.0-16.0); O2 Tension (PaO2), arterial 70.3 mmHg (> 80.0); Potassium - ABG Lab 4.30 mmol/L (3.70-5.30); pH, Arterial 7.414 (7.35-7.45)
[2025-01-03 07:51] LABS: Puncture Site Right Radial artery
[2025-01-03 07:52] LABS: ALV-art Gradient 161.025 mmHg (0-20)
[2025-01-03] MEDS: Enoxaparin 40 MG (0.4 mL) SYRINGE SC SCH (09:13)
[2025-01-03] MEDS: GUAIFENESIN SF SOLN 200 MG/10 ML UDCUP PER TUBE SCH (09:14)
[2025-01-03 09:16] VITALS: BP 171/93
[2025-01-03] MEDS ORDERED: DC Sedation Protocol FS ONE (09:37)
[2025-01-03] MEDS: Vancomycin 1 GM in Premix 1 BAG IVPB SCH (14:55)
[2025-01-04 03:01] LABS: #Basophils Less than 0.03 10x3/uL (0.0-0.2); #Eosinophils Less than 0.03 10x3/uL (0.0-0.7); #Monocytes 1.04 10x3/uL (0.11-0.59); #Neutrophils 13.63 10x3/uL (1.40-6.50); %Basophils 0.1 % (0.0-1.0); %Eosinophils 0.1 % (0.0-10.0); %Lymphocytes 10.2 % (21.0-51.0); %Monocytes 6.1 % (0.0-10.0); %Neutrophils 79.8 % (42.0-75.0); Hematocrit 31.3 % (36.0-47.0); Hemoglobin 9.3 g/dL (12.0-16.0); Mean Corpuscular Hemoglobin 29.5 pg (27.0-31.0); Mean Corpuscular Volume 99.4 fL (78.0-98.0); Platelet Count 329 10x3/uL (130-400); Red Blood Cell (RBC) Count 3.15 mill/uL (4.20-5.40); White Blood Cell (WBC) Count 17.08 10x3/uL (4.8-10.8)
[2025-01-04 03:19] LABS: Anion Gap 14 mmol/L (10-20); BUN (Urea Nitrogen) 40 mg/dL (9.8-20.1); Calc. Creatinine Clearance 64 mL/min (70-130); Calcium 8.4 mg/dL (7.8-10.44); Carbon Dioxide 26 mmol/L (23-31); Chloride 111 mmol/L (98-107); Glucose 112 mg/dL (80-115); Potassium 4.8 mmol/L (3.5-5.1); Sodium 146 mmol/L (136-145)
[2025-01-04] MEDS: Fluconazole In NaCl,Iso-Osm 400 MG in Premix 1 BAG IVPB SCH (09:47)
[2025-01-04] MEDS: Azithromycin 500 MG in Sodium Chloride 0.9% 250 ML 250 ML IVPB SCH (15:40)
[2025-01-04] MEDS: D5W-AA 4.25% with LYTES 1,000 ML IV SCH (18:19)
[2025-01-04] MEDS: Transdermal Patch Removal TOP SCH (21:15)
[2025-01-05] MEDS: Ketorolac Tromethamine 30 MG (1 mL) VIAL IVP SCH ×2 (03:20→20:40)
[2025-01-05 05:33] VITALS: BMI 35.5
[2025-01-05] MEDS: Ondansetron PF 4 MG/2 ML Vial IVP PRN (10:17)
[2025-01-05 10:28] LABS: #Basophils 0.03 10x3/uL (0.0-0.2); #Eosinophils 0.07 10x3/uL (0.0-0.7); #Monocytes 0.93 10x3/uL (0.11-0.59); #Neutrophils 16.96 10x3/uL (1.40-6.50); %Basophils 0.1 % (0.0-1.0); %Eosinophils 0.3 % (0.0-10.0); %Lymphocytes 8.7 % (21.0-51.0); %Monocytes 4.6 % (0.0-10.0); %Neutrophils 84.3 % (42.0-75.0); Hematocrit 31.2 % (36.0-47.0); Hemoglobin 9.7 g/dL (12.0-16.0); Mean Corpuscular Hemoglobin 29.9 pg (27.0-31.0); Mean Corpuscular Volume 96.3 fL (78.0-98.0); Platelet Count 302 10x3/uL (130-400); Red Blood Cell (RBC) Count 3.24 mill/uL (4.20-5.40); White Blood Cell (WBC) Count 20.16 10x3/uL (4.8-10.8)
[2025-01-05 10:42] LABS: Vancomycin, Random 14.1 ug/mL (See Comment)
[2025-01-05 10:44] LABS: Anion Gap 13 mmol/L (10-20); BUN (Urea Nitrogen) 43 mg/dL (9.8-20.1); Calc. Creatinine Clearance 71 mL/min (70-130); Calcium 8.2 mg/dL (7.8-10.44); Carbon Dioxide 23 mmol/L (23-31); Chloride 111 mmol/L (98-107); Glucose 104 mg/dL (80-115); Potassium 4.3 mmol/L (3.5-5.1); Sodium 143 mmol/L (136-145)
[2025-01-05] MEDS: Levothyroxine 100 MCG SDV IVP SCH (12:23)
[2025-01-05] MEDS: Vancomycin HCl 1.25 GM in Sodium Chloride 0.9% 250 ML 250 ML IVPB SCH (14:23)
[2025-01-06] MEDS: Levothyroxine 100 MCG SDV IVP SCH (06:33)
[2025-01-06 08:27] LABS: Anion Gap 14 mmol/L (10-20); BUN (Urea Nitrogen) 38 mg/dL (9.8-20.1); Calc. Creatinine Clearance 69 mL/min (70-130); Calcium 8.2 mg/dL (7.8-10.44); Carbon Dioxide 25 mmol/L (23-31); Chloride 104 mmol/L (98-107); Glucose 109 mg/dL (80-115); Potassium 4.6 mmol/L (3.5-5.1); Sodium 138 mmol/L (136-145)
[2025-01-06 10:04] LABS: Hematocrit 34.0 % (36.0-47.0); Hemoglobin 10.5 g/dL (12.0-16.0); Mean Corpuscular Hemoglobin 29.8 pg (27.0-31.0); Mean Corpuscular Volume 96.6 fL (78.0-98.0); Platelet Count 368 10x3/uL (130-400); Red Blood Cell (RBC) Count 3.52 mill/uL (4.20-5.40); White Blood Cell (WBC) Count 29.15 10x3/uL (4.8-10.8)
[2025-01-06 10:25] LABS: Macrocytosis SLIGHT = 6-15 cells HPF (0-5); Ovalocytes SLIGHT = 2-5 cells HPF (0-1); Platelet Adequacy Comment Platelets Normal; Polychromasia SLIGHT = 2-3 cells HPF (0-2)
[2025-01-06] MEDS: MINERAL OIL/WHITE PETROLATUM 3.5 GM TUBE EA EYE SCH (23:17)
[2025-01-07 08:53] LABS: Hematocrit 33.3 % (36.0-47.0); Hemoglobin 10.8 g/dL (12.0-16.0); Mean Corpuscular Hemoglobin 30.4 pg (27.0-31.0); Mean Corpuscular Volume 93.8 fL (78.0-98.0); Platelet Count 377 10x3/uL (130-400); Red Blood Cell (RBC) Count 3.55 mill/uL (4.20-5.40); White Blood Cell (WBC) Count 29.71 10x3/uL (4.8-10.8)
[2025-01-07 08:59] LABS: Vancomycin, Random 15.3 ug/mL (See Comment)
[2025-01-07 09:00] LABS: Anion Gap 13 mmol/L (10-20); BUN (Urea Nitrogen) 36 mg/dL (9.8-20.1); Calc. Creatinine Clearance 73 mL/min (70-130); Calcium 8.0 mg/dL (7.8-10.44); Carbon Dioxide 21 mmol/L (23-31); Chloride 106 mmol/L (98-107); Glucose 114 mg/dL (80-115); Potassium 5.4 mmol/L (3.5-5.1); Sodium 135 mmol/L (136-145)
[2025-01-07 09:24] LABS: Anisocytosis SLIGHT = 6-15 cells HPF (0-5); Platelet Adequacy Comment Platelets Normal; Poikilocytosis SLIGHT = 6-15 cells HPF (0-5); Polychromasia SLIGHT = 2-3 cells HPF (0-2)
[2025-01-07] MEDS: Furosemide 40 MG (4 mL) VIAL SLOW IVP SCH (10:44)
[2025-01-07 14:48] VITALS: BMI 35.1
[2025-01-08 06:30] LABS: Anion Gap 13 mmol/L (10-20); BUN (Urea Nitrogen) 44 mg/dL (9.8-20.1); Calc. Creatinine Clearance 65 mL/min (70-130); Calcium 8.5 mg/dL (7.8-10.44); Carbon Dioxide 22 mmol/L (23-31); Chloride 104 mmol/L (98-107); Glucose 115 mg/dL (80-115); Magnesium 2.2 mg/dL (1.6-2.6); Potassium 4.9 mmol/L (3.5-5.1); Sodium 134 mmol/L (136-145)
[2025-01-08 06:40] LABS: Hematocrit 34.8 % (36.0-47.0); Hemoglobin 11.1 g/dL (12.0-16.0); Mean Corpuscular Hemoglobin 30.2 pg (27.0-31.0); Mean Corpuscular Volume 94.6 fL (78.0-98.0); Platelet Count 491 10x3/uL (130-400); Red Blood Cell (RBC) Count 3.68 mill/uL (4.20-5.40); White Blood Cell (WBC) Count 34.99 10x3/uL (4.8-10.8)
[2025-01-08 07:35] LABS: Anisocytosis SLIGHT = 6-15 cells HPF (0-5); Platelet Adequacy Comment Platelets Increased; Polychromasia SLIGHT = 2-3 cells HPF (0-2)
[2025-01-08] MEDS: Ketorolac Tromethamine 30 MG (1 mL) VIAL IVP PRN (13:12)
[2025-01-08] MEDS ORDERED: Melatonin 3 MG TAB PO PRN (19:21)
[2025-01-08] MEDS: diphenhydrAMINE 50 MG/ML VIAL IVP SCH (21:40)
[2025-01-09 05:05] LABS: Hematocrit 32.4 % (36.0-47.0); Hemoglobin 9.9 g/dL (12.0-16.0); Mean Corpuscular Hemoglobin 29.8 pg (27.0-31.0); Mean Corpuscular Volume 97.6 fL (78.0-98.0); Platelet Count 429 10x3/uL (130-400); Red Blood Cell (RBC) Count 3.32 mill/uL (4.20-5.40); White Blood Cell (WBC) Count 29.50 10x3/uL (4.8-10.8)
[2025-01-09 05:09] LABS: Anion Gap 11 mmol/L (10-20); BUN (Urea Nitrogen) 48 mg/dL (9.8-20.1); Calc. Creatinine Clearance 60 mL/min (70-130); Calcium 8.2 mg/dL (7.8-10.44); Carbon Dioxide 21 mmol/L (23-31); Chloride 108 mmol/L (98-107); Glucose 95 mg/dL (80-115); Potassium 5.1 mmol/L (3.5-5.1); Sodium 135 mmol/L (136-145)
[2025-01-09 05:10] LABS: CRP, High Sensitivity at Bryan 10.91 mg/dL (< or = 0.5)
[2025-01-09 05:29] LABS: Burr Cells SLIGHT = 2-5 cells HPF (0-1); Platelet Adequacy Comment Platelets Normal; Polychromasia SLIGHT = 2-3 cells HPF (0-2); Smudge Cells 6.0 %
[2025-01-09 05:48] LABS: Vancomycin, Random 30.9 ug/mL (See Comment)
[2025-01-09] MEDS ORDERED: Vancomycin HCl 1.25 GM in Sodium Chloride 0.9% 250 ML 250 ML IVPB SCH (18:00)
[2025-01-09] MEDS: Vancomycin 1 GM in Premix 1 BAG IVPB SCH (19:53)
[2025-01-10 04:13] LABS: Hematocrit 33.8 % (36.0-47.0); Hemoglobin 10.3 g/dL (12.0-16.0); Mean Corpuscular Hemoglobin 29.6 pg (27.0-31.0); Mean Corpuscular Volume 97.1 fL (78.0-98.0); Platelet Count 491 10x3/uL (130-400); Red Blood Cell (RBC) Count 3.48 mill/uL (4.20-5.40); White Blood Cell (WBC) Count 28.84 10x3/uL (4.8-10.8)
[2025-01-10 04:16] LABS: Anion Gap 13 mmol/L (10-20); BUN (Urea Nitrogen) 54 mg/dL (9.8-20.1); Calc. Creatinine Clearance 65 mL/min (70-130); Calcium 8.6 mg/dL (7.8-10.44); Carbon Dioxide 19 mmol/L (23-31); Chloride 108 mmol/L (98-107); Glucose 92 mg/dL (80-115); Potassium 5.2 mmol/L (3.5-5.1); Sodium 135 mmol/L (136-145); Vancomycin, Random 14.9 ug/mL (See Comment)
[2025-01-10 04:36] VITALS: TEMP 98.6
[2025-01-10 05:01] LABS: Burr Cells MODERATE= 6-15 cells HPF (0-1); Platelet Adequacy Comment Platelets Normal; Poikilocytosis SLIGHT = 6-15 cells HPF (0-5); Polychromasia SLIGHT = 2-3 cells HPF (0-2); Smudge Cells 2.0 %
[2025-01-10] MEDS: Dextrose 50% Abboject 50 ML SYRINGE SLOW IVP SCH (06:08)
[2025-01-10] MEDS ORDERED: Glycopyrrolate 0.4 MG/ 2 ML VIAL SLOW IVP PRN (06:47)
[2025-01-10] MEDS ORDERED: Ondansetron PF 4 MG/2 ML Vial IVP PRN (06:47)
== END 2025-01-10 08:30 | disposition expired | DRG 871 ==
LOC: ERS 15:16 → SUATTDRO 15:16 → PCU 12-27 00:10 → IMCU/EMU 12-28 14:45 → CCU 12-30 11:28 → IMCU/EMU 01-06 17:40
PROVIDERS: ADMIT Internal Medicine; ATTEND Internal Medicine
PROC: XX20X89 Monitoring of Brain Electrical Activity, Computer-aided Detection and Notification, New Technology Group 9 (ICD-10-PCS; 2024-12-26)
PROC: 4A133R1 Monitoring of Arterial Saturation, Peripheral, Percutaneous Approach (ICD-10-PCS; 2024-12-26)
PROC: 0T9B70Z Drainage of Bladder with Drainage Device, Via Natural or Artificial Opening (ICD-10-PCS; 2024-12-27)
PROC: 30233J1 Transfusion of Nonautologous Serum Albumin into Peripheral Vein, Percutaneous Approach (ICD-10-PCS; 2024-12-27)
PROC: 5A09457 Assistance with Respiratory Ventilation, 24-96 Consecutive Hours, Continuous Positive Airway Pressure (ICD-10-PCS; 2024-12-28)
PROC: 05HY33Z Insertion of Infusion Device into Upper Vein, Percutaneous Approach (ICD-10-PCS; 2024-12-28)
PROC: 5A1945Z Respiratory Ventilation, 24-96 Consecutive Hours (ICD-10-PCS; principal; 2024-12-30)
PROC: 0BH17EZ Insertion of Endotracheal Airway into Trachea, Via Natural or Artificial Opening (ICD-10-PCS; 2024-12-30)
PROC: 0T9B70Z Drainage of Bladder with Drainage Device, Via Natural or Artificial Opening (ICD-10-PCS; 2024-12-30)
PROC: 0B9B8ZZ Drainage of Left Lower Lobe Bronchus, Via Natural or Artificial Opening Endoscopic (ICD-10-PCS; 2024-12-30)
PROC: 0B968ZZ Drainage of Right Lower Lobe Bronchus, Via Natural or Artificial Opening Endoscopic (ICD-10-PCS; 2024-12-30)
PROC: 0DH67UZ Insertion of Feeding Device into Stomach, Via Natural or Artificial Opening (ICD-10-PCS; 2025-01-01)
PROC: 5A0955A Assistance with Respiratory Ventilation, Greater than 96 Consecutive Hours, High Flow/Velocity Cannula (ICD-10-PCS; 2025-01-03)
PROC: 3E03329 Introduction of Other Anti-infective into Peripheral Vein, Percutaneous Approach (ICD-10-PCS; 2025-01-05)
DX: A41.89 Other specified sepsis (principal); G93.41 Metabolic encephalopathy; J69.0 Pneumonitis due to inhalation of food and vomit; I50.33 Acute on chronic diastolic (congestive) heart failure; J80 Acute respiratory distress syndrome; J12.9 Viral pneumonia, unspecified; N17.9 Acute kidney failure, unspecified; E87.0 Hyperosmolality and hypernatremia; E87.3 Alkalosis; J44.1 Chronic obstructive pulmonary disease with (acute) exacerbation; F33.9 Major depressive disorder, recurrent, unspecified; E87.29 Other acidosis; Z78.1 Physical restraint status; U09.9 Post COVID-19 condition, unspecified; Z66 Do not resuscitate; Z51.5 Encounter for palliative care; R65.20 Severe sepsis without septic shock; R13.10 Dysphagia, unspecified; G89.29 Other chronic pain; E03.9 Hypothyroidism, unspecified; D63.1 Anemia in chronic kidney disease; R25.1 Tremor, unspecified; N18.30 Chronic kidney disease, stage 3 unspecified; I27.20 Pulmonary hypertension, unspecified; F43.10 Post-traumatic stress disorder, unspecified; M19.90 Unspecified osteoarthritis, unspecified site; F41.1 Generalized anxiety disorder; Z79.890 Hormone replacement therapy; Z88.1 Allergy status to other antibiotic agents; Z79.899 Other long term (current) drug therapy; Z98.890 Other specified postprocedural states
CPT/HCPCS: 36415; 36416; 36600; 70450; 71045; 71250; 74177; 80048; 80053; 80202; 80306; 80307; 81001; 82140; 82306; 82550; 82607; 82728; 82805; 83540; 83550; 83605; 83615; 83735; 83880; 84145; 84443; 84484; 85014; 85018; 85025; 86141; 87040; 87070; 87077; 87205; 87428; 87637; 93005; 93306; 94002; 94003; 94640; 94660; 95813; 96361; 96365; 96366; 96375; 96376; J0456; J0696; J1100; J1200; J1450; J1630; J1650; J1815; J1885; J1940; J2060; J2185; J2250; J2270; J2405; J2470; J2543; J2704; J2919; J3010; J3373; J3375; J3475; J3480; J3486; J7030; J7050; J7070; J7120; J7611; J7626; J7999; P9047